=== PATIENT | female | born 1990 | race Two or more races ===

== ENCOUNTER 2018-04-02 00:01 | Emergency (ER) | payer OTHER | END 2018-04-02 14:00 | disposition left against medical advice (07) | LOC: ER 00:01 | DX: Z53.20 Procedure and treatment not carried out because of patient's decision for unspecified reasons (principal) ==

== ENCOUNTER 2018-04-02 00:39 | Outpatient (CLI) | payer OTHER | END 2018-04-02 23:45 | disposition home or self-care (01) | LOC: OBS/DEL 00:39 | DX: O26.893 Other specified pregnancy related conditions, third trimester (principal); N89.8 Other specified noninflammatory disorders of vagina; Z34.83 Encounter for supervision of other normal pregnancy, third trimester ==

== ENCOUNTER 2018-06-01 07:17 | Inpatient (IN) | payer OTHER ==
[~2018-06-01] VITALS: Ht 154.9 cm; Wt 67.6 kg
[2018-06-01] MEDS ORDERED: PRENATAL TABLE1 EAC3 PO (14:17)
== END 2018-06-03 19:24 | DRG 775 ==
LOC: LDR 07:17 → OB/GYN 07:17 → LDR 08:33 → OB/GYN 18:14
PROC: 10E0XZZ Delivery of Products of Conception, External Approach (ICD-10-PCS; principal; 2018-06-01)
PROC: 4A1HXCZ Monitoring of Products of Conception, Cardiac Rate, External Approach (ICD-10-PCS; 2018-06-01)
PROC: 4A033R1 Measurement of Arterial Saturation, Peripheral, Percutaneous Approach (ICD-10-PCS; 2018-06-01)
DX: O80 Encounter for full-term uncomplicated delivery (principal); Z3A.39 39 weeks gestation of pregnancy; Z37.0 Single live birth

== ENCOUNTER 2021-05-17 19:52 | Outpatient (CLI) | payer OTHER ==
[~2021-05-17 19:52] MED LIST: PRENATAL TABLE1 EAC3 PO
== END 2021-05-18 11:25 | disposition home or self-care (01) ==
LOC: OBS/DEL 19:52
PROVIDERS: ATTEND Obstetrics & Gynecology
DX: O26.893 Other specified pregnancy related conditions, third trimester (principal); R10.2 Pelvic and perineal pain; Z3A.29 29 weeks gestation of pregnancy

== ENCOUNTER 2021-07-23 05:54 | Inpatient (IN) | payer OTHER ==
[~2021-07-23] VITALS: Ht 154.9 cm; Wt 85.7 kg
== END 2021-07-25 16:33 | disposition home or self-care (01) | DRG 807 ==
LOC: LDR 05:54 → OB/GYN 08:34
PROVIDERS: ADMIT Obstetrics & Gynecology; ATTEND Obstetrics & Gynecology
PROC: 10E0XZZ Delivery of Products of Conception, External Approach (ICD-10-PCS; principal; 2021-07-23)
PROC: 4A1HXFZ Monitoring of Products of Conception, Cardiac Rhythm, External Approach (ICD-10-PCS; 2021-07-23)
DX: O70.0 First degree perineal laceration during delivery (principal); Z37.0 Single live birth; O99.824 Streptococcus B carrier state complicating childbirth; Z3A.38 38 weeks gestation of pregnancy